=== PATIENT | female | born 1955 | race Caucasian/White ===

== ENCOUNTER 2017-03-10 12:54 | Emergency (ER) | payer MEDICARE, MEDICAID ==
[~2017-03-10] VITALS: Ht 177.8 cm; Wt 99.8 kg
[~2017-03-10 12:54] MED LIST: ACETAMINOPHEN-H1 TA2 PO; AMOXICILLIN500 MG PO; AUGMENTIN 875875 MG PO; BACTROBAN OINT22 GM PO; CIPRO500 MG PO; CRESTOR20 M1 PO; CRESTOR40 M1 PO; CYCLOBENZAPRINE10 MG PO; CYCLOBENZAPRINE5 M3 PO; FLAGYL500 MG PO; FLUCONAZOLE100 MG PO; KEFLEX 500 MG E2 CAP PO; METHOCARBAMOL750 M1 PO; Motrin,Rufen800 MG PO; NAPROSYN500 MG PO; NEURONTIN600 MG PO; NYSTATIN100000 U/M PO; PHENERGAN25 M1 PO; PREDNICOT20 MG PO; PRILOSEC40 MG PO; SIMVASTATIN80 MG PO; TESSALON PERLE200 MG PO; VICO75300 PO; ZETIA10 MG PO; ZOFRAN ODT4 MG SL; ZOLOFT25 MG PO; ZYRTEC10 MG PO
[2017-03-10 13:02] VITALS: BP 125/63
[2017-03-10] MEDS ORDERED: NAPROSYN500 MG PO (13:17)
[2017-03-10] MEDS ORDERED: 'PARAFON FORTE500 M1 PO (13:17)
== END 2017-03-10 14:08 | disposition home or self-care (01) ==
LOC: ED 12:54
DX: S39.012A Strain of muscle, fascia and tendon of lower back, initial encounter (principal); R03.0 Elevated blood-pressure reading, without diagnosis of hypertension; F17.200 Nicotine dependence, unspecified, uncomplicated; Z88.6 Allergy status to analgesic agent; Z88.8 Allergy status to other drugs, medicaments and biological substances; X58.XXXA Exposure to other specified factors, initial encounter; Y93.89 Activity, other specified; Y92.9 Unspecified place or not applicable; Y99.9 Unspecified external cause status

== ENCOUNTER 2017-06-15 11:20 | Emergency (ER) | payer MEDICARE ==
[~2017-06-15 11:20] MED LIST changes: +'PARAFON FORTE500 M1 PO
[2017-06-15 11:52] VITALS: BP 150/80
== END 2017-06-15 14:25 | disposition home or self-care (01) ==
LOC: ED 11:20
DX: S80.02XA Contusion of left knee, initial encounter (principal); S80.01XA Contusion of right knee, initial encounter; R03.0 Elevated blood-pressure reading, without diagnosis of hypertension; F17.200 Nicotine dependence, unspecified, uncomplicated; Z88.6 Allergy status to analgesic agent; Z88.8 Allergy status to other drugs, medicaments and biological substances; Z79.899 Other long term (current) drug therapy; W01.0XXA Fall on same level from slipping, tripping and stumbling without subsequent striking against object, initial encounter; Y93.89 Activity, other specified; Y92.89 Other specified places as the place of occurrence of the external cause; Y99.8 Other external cause status

== ENCOUNTER 2017-06-22 18:44 | Emergency (ER) | payer MEDICARE ==
[~2017-06-22] VITALS: Ht 177.8 cm; Wt 90.7 kg
[2017-06-22 18:54] VITALS: BP 127/78
[2017-06-22] MEDS ORDERED: FLONASE ALLERG9.9 ML NAS (19:11)
[2017-06-22] MEDS ORDERED: ROBITUSSIN DM 105 ML PO (19:11)
[2017-06-22] MEDS ORDERED: PREDNISONE10 MG PO (19:11)
[2017-06-22] MEDS ORDERED: CLARITIN10 MG PO (19:11)
== END 2017-06-22 21:54 | disposition home or self-care (01) ==
LOC: ED 18:44
DX: B34.9 Viral infection, unspecified (principal); R03.0 Elevated blood-pressure reading, without diagnosis of hypertension; F17.200 Nicotine dependence, unspecified, uncomplicated; Z88.6 Allergy status to analgesic agent; Z88.8 Allergy status to other drugs, medicaments and biological substances; Z79.899 Other long term (current) drug therapy

== ENCOUNTER → 2018-03-20 | Day surgery (SDC) | payer MEDICARE ==
[~2018-03-20] VITALS: Ht 177.8 cm; Wt 93.4 kg
[~2018-03-20] MED LIST changes: +CLARITIN10 MG PO; +FLONASE ALLERG9.9 ML NAS; +PREDNISONE10 MG PO; +ROBITUSSIN DM 105 ML PO
--- NOTE | ~2018-03-20 | O ---
[place], [place] OPERATIVE NOTE NAME: ROBERTA BRASWELL [facility] #: [id number] UNIT #: [id number] ROOM: DOCTOR: MANDA MAGAÑA MD BIRTHDATE: [birth year] DOS: 03/20/2018 PREOPERATIVE DIAGNOSIS: Cataract, left eye. POSTOPERATIVE DIAGNOSIS: Cataract, left eye. OPERATION: Extracapsular cataract extraction by phacoemulsification with posterior chamber intraocular lens implantation, left eye. ANESTHESIA: Monitored standby. OPERATIVE FINDINGS AND PROCEDURE: 2% Xylocaine topical anesthetic gel was applied to the eye in the preop area. The patient was taken to the operating room and prepped and draped in the standard fashion for sterile intraocular surgery. A time out procedure was performed verifying correct patient, correct site and corrects lens with Ritchie Magaña M.D. The operating microscope was swung into position and the lid speculum was inserted. Using a Minda paracentesis blade, a paracentesis was made through clear cornea. Viscoelastic was used to fill the anterior chamber. Using a metal keratome a 2.4 mm self-sealing clear corneal cataract incision was made temporally at the limbus. Using a pre-bent 25 gauge cystotome needle, a standard continuous curvilinear capsulorrhexis was performed. The anterior capsule was removed with forceps. The lens nucleus was hydrodissected and phacoemulsified in the posterior chamber. Cortical material was removed with the irrigation aspiration hand piece and the posterior capsule was then polished with a curet under irrigation. The posterior chamber and capsular bag were filled with viscoelastic. A posterior chamber intraocular lens manufactured by: [employer], Model #[id number], and 20.5 diopters in strength were then inserted into the posterior chamber and within the capsular bag using the lens cartridge and injector system. Viscoelastic was removed using the irrigation aspiration handpiece. The anterior chamber was filled with balanced salt solution through the paracentesis. Both the paracentesis site and cataract incisions were hydrated with BSS and verified to be water-tight and self-sealing. Cefuroxime 1 mg/0.1 mL was injected into the anterior chamber through the paracentesis site. The incision checked to be water-tight using a Weck-Ashley sponge. The integrity of the cataract wound and ocular tension were checked. Lid speculum and drapes were removed. The patient was transferred from the operating room to the recovery room in satisfactory condition. [place], [place] OPERATIVE NOTE NAME: ROBERTA BRASWELL UNIT #: [id number] ROOM: DOCTOR: MANDA MAGAÑA MD BIRTHDATE: [birth year] MANDA MAGAÑA MD CM:OPRECORD:OPERATIVE NOTE [id number] MANDA MAGAÑA MD 03/20/18 0907 interface
[2018-03-20 07:05] VITALS: BP 124/66
[2018-03-20 08:43] VITALS: BP 124/62
[2018-03-20 09:00] VITALS: BP 119/63
[2018-03-20 09:09] VITALS: BP 110/51
== END | disposition home or self-care (01) ==
LOC: SDC 03-15 08:45
DX: H25.812 Combined forms of age-related cataract, left eye (principal); F32.9 Major depressive disorder, single episode, unspecified; K21.9 Gastro-esophageal reflux disease without esophagitis; F41.9 Anxiety disorder, unspecified; F17.210 Nicotine dependence, cigarettes, uncomplicated; E78.00 Pure hypercholesterolemia, unspecified; Z98.51 Tubal ligation status; M19.90 Unspecified osteoarthritis, unspecified site; Z98.890 Other specified postprocedural states; Z79.899 Other long term (current) drug therapy; Z88.8 Allergy status to other drugs, medicaments and biological substances

== ENCOUNTER → 2018-04-17 | Day surgery (SDC) | payer MEDICARE, MEDICAID ==
[~2018-04-17] VITALS: Ht 177.8 cm; Wt 93.4 kg
--- NOTE | ~2018-04-17 | O ---
[place], [place] OPERATIVE NOTE NAME: ROBERTA BRASWELL [facility] #: [id number] UNIT #: [id number] ROOM: DOCTOR: MANDA MAGAÑA MD BIRTHDATE: [birth year] DOS: 04/17/2018 PREOPERATIVE DIAGNOSIS: Cataract, right eye. POSTOPERATIVE DIAGNOSIS: Cataract, right eye. OPERATION: Extracapsular cataract extraction by phacoemulsification with posterior chamber intraocular lens implantation, right eye. ANESTHESIA: Monitored standby. OPERATIVE FINDINGS AND PROCEDURE: 2% Xylocaine topical anesthetic gel was applied to the eye in the preop area. The patient was taken to the operating room and prepped and draped in the standard fashion for sterile intraocular surgery. A time out procedure was performed verifying correct patient, correct site and corrects lens with Ritchie Magaña M.D. The operating microscope was swung into position and the lid speculum was inserted. Using a Minda paracentesis blade, a paracentesis was made through clear cornea. Viscoelastic was used to fill the anterior chamber. Using a metal keratome a 2.4 mm self-sealing clear corneal cataract incision was made temporally at the limbus. Using a pre-bent 25 gauge cystotome needle, a standard continuous curvilinear capsulorrhexis was performed. The anterior capsule was removed with forceps. The lens nucleus was hydrodissected and phacoemulsified in the posterior chamber. Cortical material was removed with the irrigation aspiration hand piece and the posterior capsule was then polished with a curet under irrigation. The posterior chamber and capsular bag were filled with viscoelastic. A posterior chamber intraocular lens manufactured by: [employer], Model #[id number], and 20.0 diopters in strength were then inserted into the posterior chamber and within the capsular bag using the lens cartridge and injector system. Viscoelastic was removed using the irrigation aspiration handpiece. The anterior chamber was filled with balanced salt solution through the paracentesis. Both the paracentesis site and cataract incisions were hydrated with BSS and verified to be water-tight and self-sealing. Cefuroxime 1 mg/0.1 mL was injected into the anterior chamber through the paracentesis site. The incision checked to be water-tight using a Weck-Ashley sponge. The integrity of the cataract wound and ocular tension were checked. Lid speculum and drapes were removed. The patient was transferred from the operating room to the recovery room in satisfactory condition. [place], [place] OPERATIVE NOTE NAME: ROBERTA BRASWELL UNIT #: [id number] ROOM: DOCTOR: MANDA MAGAÑA MD BIRTHDATE: [birth year] MANDA MAGAÑA MD CM:OPRECORD:OPERATIVE NOTE [id number] MANDA MAGAÑA MD 04/17/18 1248 interface
[2018-04-17 07:19] VITALS: BP 113/75
[2018-04-17 08:03] VITALS: BP 134/69
[2018-04-17 08:18] VITALS: BP 148/68
[2018-04-17 08:29] VITALS: BP 144/71
== END | disposition home or self-care (01) ==
LOC: SDC 04-12 08:00
DX: E11.36 Type 2 diabetes mellitus with diabetic cataract (principal); H25.811 Combined forms of age-related cataract, right eye; E78.00 Pure hypercholesterolemia, unspecified; F17.210 Nicotine dependence, cigarettes, uncomplicated; K21.9 Gastro-esophageal reflux disease without esophagitis; F41.8 Other specified anxiety disorders; K58.9 Irritable bowel syndrome, unspecified; M19.90 Unspecified osteoarthritis, unspecified site; Z88.6 Allergy status to analgesic agent; Z88.5 Allergy status to narcotic agent; Z88.8 Allergy status to other drugs, medicaments and biological substances; Z98.51 Tubal ligation status; Z90.49 Acquired absence of other specified parts of digestive tract; Z96.651 Presence of right artificial knee joint; Z79.899 Other long term (current) drug therapy

== ENCOUNTER 2020-03-14 06:37 | Emergency (ER) | payer MEDICARE, MEDICAID ==
[~2020-03-14] VITALS: Ht 177.8 cm; Wt 104.3 kg
[2020-03-14 06:46] VITALS: BP 138/77
== END 2020-03-14 07:20 | disposition home or self-care (01) ==
LOC: ED 06:37
DX: H11.31 Conjunctival hemorrhage, right eye (principal); K21.9 Gastro-esophageal reflux disease without esophagitis; E78.00 Pure hypercholesterolemia, unspecified; M19.90 Unspecified osteoarthritis, unspecified site; Z88.6 Allergy status to analgesic agent; Z88.8 Allergy status to other drugs, medicaments and biological substances; Z79.899 Other long term (current) drug therapy

== ENCOUNTER 2020-12-19 12:00 | Emergency (ER) | payer MEDICARE, MEDICAID ==
[~2020-12-19] VITALS: Wt 105.7 kg
[2020-12-19 12:05] VITALS: BP 141/75
[2020-12-19] MEDS ORDERED: TESSALON PERLE100 MG PO (12:20)
== END 2020-12-19 12:23 | disposition home or self-care (01) ==
LOC: ED 12:00
DX: B34.9 Viral infection, unspecified (principal); Z20.822 Contact with and (suspected) exposure to COVID-19; I10 Essential (primary) hypertension; E11.9 Type 2 diabetes mellitus without complications; F32.9 Major depressive disorder, single episode, unspecified; K21.9 Gastro-esophageal reflux disease without esophagitis; F41.9 Anxiety disorder, unspecified; E78.00 Pure hypercholesterolemia, unspecified; M19.90 Unspecified osteoarthritis, unspecified site; F17.200 Nicotine dependence, unspecified, uncomplicated; Z88.5 Allergy status to narcotic agent; Z88.8 Allergy status to other drugs, medicaments and biological substances; Z88.6 Allergy status to analgesic agent; Z79.899 Other long term (current) drug therapy; Z90.49 Acquired absence of other specified parts of digestive tract; Z98.51 Tubal ligation status; Z96.653 Presence of artificial knee joint, bilateral

== ENCOUNTER → 2021-04-17 | Outpatient (CLI) | payer MEDICARE, MEDICAID ==
[~2021-04-17] MED LIST changes: +TESSALON PERLE100 MG PO
== END | disposition home or self-care (01) ==
LOC: RAD 12:47
PROVIDERS: ATTEND Nurse Practitioner
DX: M50.321 Other cervical disc degeneration at C4-C5 level (principal); M48.02 Spinal stenosis, cervical region; R25.1 Tremor, unspecified; R20.0 Anesthesia of skin

== ENCOUNTER 2021-06-04 18:35 | Emergency (ER) | payer MEDICARE, MEDICAID ==
[~2021-06-04] VITALS: Ht 177.8 cm; Wt 104.3 kg
[2021-06-04 18:44] VITALS: BP 142/66
[2021-06-04] MEDS ORDERED: METHOCARBAMOL750 M1 PO (19:02)
[2021-06-04] MEDS ORDERED: NAPROSYN500 MG PO (19:02)
== END 2021-06-04 19:19 | disposition home or self-care (01) ==
LOC: ED 18:35
DX: S39.012A Strain of muscle, fascia and tendon of lower back, initial encounter (principal); Z88.6 Allergy status to analgesic agent; Z88.8 Allergy status to other drugs, medicaments and biological substances; Z79.899 Other long term (current) drug therapy; X58.XXXA Exposure to other specified factors, initial encounter; Y93.89 Activity, other specified; Y92.89 Other specified places as the place of occurrence of the external cause; Y99.8 Other external cause status

== ENCOUNTER 2022-04-02 10:54 | Emergency (ER) | payer MEDICARE, MEDICAID ==
[~2022-04-02] VITALS: Ht 179 cm; Wt 106.6 kg
[2022-04-02 11:06] VITALS: BP 150/99
[2022-04-02] MEDS ORDERED: PREDNISONE10 MG PO (11:15)
== END 2022-04-02 11:32 | disposition home or self-care (01) ==
LOC: ED 10:54
DX: L23.7 Allergic contact dermatitis due to plants, except food (principal)

== ENCOUNTER → 2023-11-06 | Outpatient (CLI) | payer MEDICARE, MEDICAID | END | disposition home or self-care (01) | LOC: US 00:58 → CT 09:00 | PROVIDERS: ATTEND Family Medicine | DX: E04.2 Nontoxic multinodular goiter (principal); D11.9 Benign neoplasm of major salivary gland, unspecified; M54.2 Cervicalgia; M25.551 Pain in right hip; I70.0 Atherosclerosis of aorta ==

== ENCOUNTER 2024-03-21 09:49 | Emergency (ER) | payer MEDICARE, MEDICAID ==
[~2024-03-21] VITALS: Ht 177.8 cm; Wt 81.2 kg
[2024-03-21 10:43] LABS: BILIRUBIN 2+ (Negative); BLOOD 2+ (Negative); CLARITY Turbid (Clear); GLUCOSE Negative (Negative); LEUKO ESTERASE 3+ (Negative); NITRITE Positive (Negative)
[2024-03-21 10:59] LABS: KETONE Negative (Negative)
[2024-03-21 11:00] LABS: COLOR Red (Yellow)
[2024-03-21 11:02] LABS: BACTERIA 4+; RBC TNTC rbc/hpf (0-2); WBC TNTC wbc/hpf (0-5)
[2024-03-21] MEDS ORDERED: CIPRO500 MG PO (11:09)
[2024-03-21] MEDS ORDERED: Ciprofloxacin Hydrochloride 500 MG TAB PO ONE (11:10)
== END 2024-03-21 11:20 | disposition home or self-care (01) ==
LOC: ED 09:49
PROVIDERS: Internal Medicine
DX: N39.0 Urinary tract infection, site not specified (principal); F32.A Depression, unspecified; K21.9 Gastro-esophageal reflux disease without esophagitis; F41.9 Anxiety disorder, unspecified; E78.00 Pure hypercholesterolemia, unspecified; M19.90 Unspecified osteoarthritis, unspecified site; Z88.5 Allergy status to narcotic agent; Z88.8 Allergy status to other drugs, medicaments and biological substances; Z90.49 Acquired absence of other specified parts of digestive tract; Z98.51 Tubal ligation status; Z98.890 Other specified postprocedural states; Z96.653 Presence of artificial knee joint, bilateral